=== PATIENT | male | born 1965 | race Caucasian/White ===

== ENCOUNTER 2022-01-06 07:57 | Emergency (ER) | payer OTHER, SELFPAY ==
[~2022-01-06] VITALS: Ht 175.3 cm; Wt 98.1 kg
[2022-01-06 07:58] VITALS: BP 134/78
[2022-01-06] MEDS ORDERED: FAMO20TA PO (08:50)
[2022-01-06] MEDS ORDERED: OMEP-173 PO (08:50)
[2022-01-06] MEDS ORDERED: SUMA50TA2 PO (08:50)
[2022-01-06] MEDS ORDERED: TOPI50TA9 PO (08:50)
[2022-01-06] MEDS ORDERED: BUDE0.5S6 NEB (08:50)
[2022-01-06] MEDS ORDERED: VENTAER INH (08:50)
[2022-01-06] MEDS ORDERED: KETOROLAC 30 MG/ML 1ML VIAL IM ONE (12:35)
[2022-01-06] MEDS ORDERED: diazePAM 5MG TABLET PO ONE (12:35)
[2022-01-06] MEDS ORDERED: LIDOCAINE 5% (LIDODERM) PATCH TD ONE (12:35)
[2022-01-06] MEDS ORDERED: HYDR-3713 PO (14:27)
[2022-01-06] MEDS ORDERED: **NOTE PATIENT COMMENT** MISC XX SCH (21:00)
== END 2022-01-06 14:41 | disposition home or self-care (01) ==
LOC: M ED 07:57
DX: M51.27 Other intervertebral disc displacement, lumbosacral region (principal); M54.18 Radiculopathy, sacral and sacrococcygeal region; M25.512 Pain in left shoulder; J45.909 Unspecified asthma, uncomplicated; K21.9 Gastro-esophageal reflux disease without esophagitis; R51.9 Headache, unspecified
CPT/HCPCS: 72125; 72128; 72131; 73030; 96372; 99282; J1885